=== PATIENT | female | born 1995 | race Caucasian/White ===

== ENCOUNTER 2023-07-08 20:05 | Emergency (ER) | payer MEDICAID ==
[~2023-07-08] VITALS: Ht 157.5 cm; Wt 84.8 kg
[2023-07-08 20:18] VITALS: BP_SYST 117; PULSE 80; RESP 18; TEMP 98.2; O2SAT 100
[2023-07-08] MEDS ORDERED: IBUP-1971 PO (21:23)
[2023-07-08 21:26] VITALS: BP_SYST 117; PULSE 80; RESP 18; TEMP 98.2; O2SAT 100
== END 2023-07-08 21:25 | disposition home or self-care (01) ==
LOC: SED 20:05
DX: L03.115 Cellulitis of right lower limb (principal); M79.661 Pain in right lower leg; J45.909 Unspecified asthma, uncomplicated; Z79.899 Other long term (current) drug therapy
CPT/HCPCS: 93971; 99284